=== PATIENT | male | born 1970 | race Caucasian/White ===

== ENCOUNTER 2019-02-03 21:38 | Emergency (ER) | payer MEDICAID, OTHER | END 2019-02-03 23:25 | disposition home or self-care (01) | LOC: FTE 21:38 | DX: S91.331A Puncture wound without foreign body, right foot, initial encounter (principal); I10 Essential (primary) hypertension; E11.69 Type 2 diabetes mellitus with other specified complication; W45.0XXA Nail entering through skin, initial encounter; Y92.89 Other specified places as the place of occurrence of the external cause; Z79.84 Long term (current) use of oral hypoglycemic drugs | CPT/HCPCS: 99283; Z7502 ==

== ENCOUNTER 2019-03-14 13:22 | Emergency (ER) | payer OTHER | END 2019-03-14 13:38 | disposition home or self-care (01) | LOC: E/R 13:38 | DX: Z48.01 Encounter for change or removal of surgical wound dressing (principal); I10 Essential (primary) hypertension; Z79.84 Long term (current) use of oral hypoglycemic drugs | CPT/HCPCS: 99281; Z7502 ==